=== PATIENT | male | born 1995 | race Caucasian/White ===

== ENCOUNTER 2018-09-26 14:26 | Emergency (ER) | payer OTHER ==
[2018-09-26 15:02] VITALS: BP 133/79
--- NOTE | 2018-09-26 15:16 | UC ---
Throat Pain/Nasal [place] HPI - HPI Summary HPI Summary: Pt presents with c/o nasal congestion and uri like symptoms x 1 day. Pt has c/o pea size, non tender moveable lump in left side of neck. - History of Current Complaint Stated Complaint: CHILLS, HEADACHE, COUGH Time Seen by Provider: 09/26/18 14:53 Hx Obtained From: Patient Onset/Duration: Sudden Onset - uri like symptoms, Gradual Onset - left side of neck Severity: Mild Pain Intensity: 4 Cough: None Associated Signs & Symptoms: Positive: Sinus Discomfort - Epiglottits Risk Factors Epiglottis Risk Factors: Negative - Allergies/Home Medications Allergies/Adverse Reactions: Allergies Allergy/AdvReac Type Severity Reaction Status Date / Time No Known Allergies Allergy Verified 09/26/18 14:53 Home Medications: Home Medications Acetaminophen TAB* [Tylenol TAB*] 650 mg PO Q4H PRN 09/26/18 [History Confirmed 09/26/18] PMH/Surg Hx/FS Hx/Imm Hx Previously Healthy: Yes - Surgical History Surgical History: Yes Surgery Procedure, Year, and Place: ear tubes - Family History Known Family History: Positive: Cardiac Disease - Social History Occupation: Employed Full-time Lives: With Family Alcohol Use: None Substance Use Type: None Smoking Status (MU): Never Smoked Tobacco Have You Smoked in the Last Year: No Review of Systems All Other Systems Reviewed And Are Negative: Yes Constitutional: Positive: Negative Skin: Positive: Negative Eyes: Positive: Negative ENT: Positive: Sinus Congestion Respiratory: Positive: Negative Cardiovascular: Positive: Negative Gastrointestinal: Positive: Negative Genitourinary: Positive: Negative Motor: Positive: Negative Neurovascular: Positive: Negative Musculoskeletal: Positive: Negative Neurological: Positive: Negative Psychological: Positive: Negative Is Patient Immunocompromised?: No Physical Exam Triage Information Reviewed: Yes Appearance: Well-Appearing Vital Signs: Initial Vital Signs Temp 97.9 F 09/26/18 14:54 Pulse 57 09/26/18 14:54 Resp 14 09/26/18 14:54 BP 133/79 09/26/18 14:54 Pulse Ox 99 09/26/18 14:54 Vital Signs Reviewed: Yes Eye Exam: Normal ENT: Positive: Nasal congestion Dental Exam: Normal Neck: Positive: Enlarged Nodes @ - left side neck at base, pea size, non tendewr , moveable soft mass Respiratory Exam: Normal Cardiovascular Exam: Normal Musculoskeletal Exam: Normal Neurological Exam: Normal Psychological Exam: Normal Skin Exam: Normal Throat Pain/Nasal Course/Dx - Differential Dx/Diagnosis Differential Diagnosis/HQI/PQRI: Pharyngitis, URI Provider Diagnosis: Viral syndrome, Lymphadenopathy of head and neck region Discharge - Sign-Out/Discharge Documenting (check all that apply): Patient Departure All imaging exams completed and their final reports reviewed: No Studies - Discharge Plan Condition: Stable Disposition: HOME Patient Education Materials: Lymphadenopathy (ED), Viral Syndrome (ED) Forms: *Work Release Referrals: Dino Clay MD [Primary Care Provider] - As Soon As Possible - Billing Disposition and Condition Condition: STABLE Disposition: Home
== END 2018-09-26 15:26 | disposition home or self-care (01) ==
LOC: UCCORT 14:26
DX: B34.9 Viral infection, unspecified (principal); R59.1 Generalized enlarged lymph nodes
CPT/HCPCS: 99211; G0463

== ENCOUNTER 2018-11-13 14:53 | Emergency (ER) | payer SELFPAY ==
[2018-11-13 15:48] VITALS: BP 136/78
--- NOTE | 2018-11-13 16:11 | UC ---
FLU HPI - HPI Summary HPI Summary: Pt presents with c/o sudden onset of cough nasal and sinus congestion ST cough body aches x2 days. - History of Current Complaint Chief Complaint: UCRespiratory Stated Complaint: CONGESTION/COUGH Time Seen by Provider: 11/13/18 16:04 Hx Obtained From: Patient Onset/Duration: Sudden Onset, Lasting Days, Worse Since - onset Severity Currently: Mild Severity Initially: Moderate Pain Intensity: 0 Associated Signs & Symptoms: Positive: Fever, Myalgia, Cough, Sore Throat, Nasal Congestion, Headache Related Hx: Possible Flu/Infectious Exposure - Risk Factors Influenza Risk Factors: Negative - Allergy/Home Medications Allergies/Adverse Reactions: Allergies Allergy/AdvReac Type Severity Reaction Status Date / Time No Known Allergies Allergy Verified 11/13/18 15:44 Home Medications: Home Medications NK [No Home Medications Reported] 11/13/18 [History Confirmed 11/13/18] PMH/Surg Hx/FS Hx/Imm Hx Previously Healthy: Yes - Surgical History Surgical History: Yes Surgery Procedure, Year, and Place: ear tubes - Family History Known Family History: Positive: Cardiac Disease - Social History Occupation: Employed Full-time Lives: With Family Alcohol Use: Rare Substance Use Type: None Smoking Status (MU): Never Smoked Tobacco Have You Smoked in the Last Year: No Review of Systems All Other Systems Reviewed And Are Negative: Yes Constitutional: Positive: Chills, Fatigue Skin: Positive: Negative Eyes: Positive: Negative ENT: Positive: Sore Throat, Ear Ache, Nasal Discharge, Sinus Congestion, Sinus Pain/Tenderness Respiratory: Positive: Cough Cardiovascular: Positive: Negative Gastrointestinal: Positive: Negative Genitourinary: Positive: Negative Motor: Positive: Negative Neurovascular: Positive: Negative Musculoskeletal: Positive: Myalgia Neurological: Positive: Headache Psychological: Positive: Negative Is Patient Immunocompromised?: No Physical Exam Triage Information Reviewed: Yes Appearance: Ill-Appearing Vital Signs: Initial Vital Signs Temp 99.7 F 11/13/18 15:44 Pulse 63 11/13/18 15:44 Resp 16 11/13/18 15:44 BP 136/78 11/13/18 15:44 Pulse Ox 98 11/13/18 15:44 Vital Signs Reviewed: Yes Eye Exam: Normal ENT: Positive: Nasal congestion, TM bulging Dental Exam: Normal Respiratory Exam: Normal Cardiovascular Exam: Normal Musculoskeletal Exam: Normal Neurological Exam: Normal Psychological Exam: Normal Skin Exam: Normal Flu Course/Dx - Course Course Of Treatment: Pt declined flu test due to lack of insurance and concern for cost. - Differential Dx/Diagnosis Differential Diagnosis/HQI/PQRI: Bronchitis, Influenza, RSV Provider Diagnosis: Viral syndrome Discharge - Sign-Out/Discharge Documenting (check all that apply): Patient Departure All imaging exams completed and their final reports reviewed: No Studies - Discharge Plan Condition: Stable Disposition: HOME Patient Education Materials: Viral Syndrome (ED) Forms: *Work Release Referrals: Care [facility] [Outside] - As Soon As Possible Dino Clay MD [Primary Care Provider] - If Needed - Billing Disposition and Condition Condition: STABLE Disposition: Home
== END 2018-11-13 16:20 | disposition home or self-care (01) ==
LOC: UCCORT 14:53
DX: B34.9 Viral infection, unspecified (principal); R05 Cough; R09.81 Nasal congestion; J02.9 Acute pharyngitis, unspecified; M79.10 Myalgia, unspecified site; R51 Headache; H92.09 Otalgia, unspecified ear
CPT/HCPCS: 99211; G0463